=== PATIENT | female | born 2000 | race Caucasian/White ===

== ENCOUNTER 2020-08-30 03:49 | Emergency (ER) | payer MEDICAID ==
[~2020-08-30] VITALS: Ht 162.6 cm; Wt 64.9 kg
[2020-08-30 04:00] VITALS: Ht 162.6 cm; Wt 64.9 kg
[2020-08-30 04:56] LABS: PLATELET COUNT 176 x10^3mcL (130-400)
[2020-08-30 04:59] LABS: BASOPHIL % 3.2 % (0-2); RED CELL DISTRIBUTION WIDTH 16.7 % (11.5-14.5)
[2020-08-30 05:29] LABS: CALCIUM 9.5 mg/dL (8.5-10.1); CARBON DIOXIDE 25.6 mmol/L (21-32); CHLORIDE SERUM 103 mmol/L (98-107); CREATININE SERUM 0.7 mg/dL (0.6-1.0); GFR1 > 60 mL/min; GLUCOSE SERUM 134 mg/dL (74-106); POTASSIUM SERUM 3.5 mmol/L (3.5-5.1); SODIUM SERUM 140 mmol/L (136-145)
[2020-08-30 05:34] LABS: ALBUMIN 4.1 g/dL (3.4-5.0); ALKALINE PHOSPHATASE 115 U/L (46-116); ALT/SGPT 56 U/L (14-59); AST/SGOT 30 U/L (15-37); BILIRUBIN TOTAL 0.33 mg/dL (0.20-1.00); TOTAL PROTEIN, SERUM 7.9 g/dL (6.4-8.2)
[2020-08-30 05:57] VITALS: BP 121/62
== END 2020-08-30 05:57 | disposition home or self-care (01) ==
LOC: ED 03:49
PROVIDERS: Emergency Medicine
DX: R55 Syncope and collapse (principal)
CPT/HCPCS: 82962